=== PATIENT | male | born 1975 | race Caucasian/White ===

== ENCOUNTER 2022-03-02 02:22 | Emergency (ER) | payer SELFPAY ==
[~2022-03-02] VITALS: Ht 182.9 cm; Wt 88.6 kg
[2022-03-02 03:55] VITALS: BP 151/105
== END 2022-03-02 03:56 | disposition home or self-care (01) ==
LOC: ED 02:22
DX: S81.801A Unspecified open wound, right lower leg, initial encounter (principal); F17.210 Nicotine dependence, cigarettes, uncomplicated; Z28.310 Unvaccinated for COVID-19; X58.XXXA Exposure to other specified factors, initial encounter